=== PATIENT | male | born 1955 | race Caucasian/White ===

== ENCOUNTER 2018-11-02 09:58 | Emergency (ER) | payer BC ==
--- NOTE | 2018-11-02 12:20 | UC ---
Ear Complaint HPI - HPI Summary HPI Summary: Patient has had sensation of right ear congestion for the last several weeks. It feels plugged and has some occasional discomfort. Has been taking antihistamines and using Debrox without much relief in symptoms. Has some slight clear nasal drainage which he attributes to allergies but no cough or other URI symptoms. No fever/nausea/vomiting. Is also complaining of some discomfort in the right side of his neck. No sore throat or respiratory involvement. Has done a lot of air travel over the past couple of months both domestically and overseas which he thinks has exacerbated his sx. - History of Current Complaint Chief Complaint: UCEar Stated Complaint: EAR PAIN PAIN IN THROAT Time Seen by Provider: 11/02/18 11:34 Hx Obtained From: Patient Onset/Duration: Sudden Onset, Lasting Weeks, Still Present Severity Initially: Mild Severity Currently: Mild Pain Intensity: 2 Pain Scale Used: 0-10 Numeric Aggravating Factors: Nothing Alleviating Factors: Nothing Associated Signs/Symptoms: Negative: Discharge, Hearing Loss, URI Symptoms - Allergies/Home Medications Allergies/Adverse Reactions: Allergies Allergy/AdvReac Type Severity Reaction Status Date / Time ENVIRONMENTAL/POLLENS Allergy Unknown Uncoded 11/02/18 10:14 Reaction Details PMH/Surg Hx/FS Hx/Imm Hx Cardiovascular History: Hypertension - NO MEDS Other Neurological History: MS - Surgical History Surgical History: Yes Surgery Procedure, Year, and Place: TISSUE REMOVAL LEFT HAND X5 MOST RECENT 2012, LEFT KNEE 14 YEARS AGO - Family History Known Family History: Positive: Cardiac Disease, Hypertension, Other - HLD - Social History Alcohol Use: Daily Alcohol Amount: 2 beers Substance Use Type: None Smoking Status (MU): Never Smoked Tobacco Type: Cigarettes Have You Smoked in the Last Year: No When Did the Patient Quit Smoking/Using Tobacco: quit 25 years ago Review of Systems All Other Systems Reviewed And Are Negative: Yes Constitutional: Positive: Negative Skin: Positive: Negative ENT: Positive: Ear Ache, Nasal Discharge Respiratory: Positive: Negative Cardiovascular: Positive: Negative Gastrointestinal: Positive: Negative Musculoskeletal: Positive: Myalgia - RIGHT SCM Physical Exam Triage Information Reviewed: Yes Appearance: Well-Appearing, No Pain Distress, Well-Nourished Vital Signs: Initial Vital Signs Temp 97.9 F 11/02/18 10:09 Pulse 80 11/02/18 10:09 Resp 18 11/02/18 10:09 BP 142/90 11/02/18 10:09 Pulse Ox 100 11/02/18 10:09 Vital Signs Reviewed: Yes Eyes: Positive: Conjunctiva Clear ENT: Positive: Hearing grossly normal, Pharynx normal, Other - BILATERAL TM RETRACTED Neck: Positive: Supple, No Lymphadenopathy, Other: - POINT TENDER OVER RIGHT SCM. NO MASSES Respiratory Exam: Normal Cardiovascular Exam: Normal Abdomen Description: Positive: Soft Musculoskeletal: Positive: No Edema Neurological: Positive: Alert Psychological: Positive: Age Appropriate Behavior Skin: Negative: Rashes Ear Complaint Course/Dx - Course Course Of Treatment: EXAM TODAY SHOWED RETRACTED EARDRUMS BUT NO ACUTE INFECTION. PATIENT HAS BEEN TRAVELING BY PLANE A LOT OVER THE PAST COUPLE OF MONTHS. LIKELY EUSTACHIAN TUBE DYSFUNCTION. RECOMMEND ENT EVALUATION IF SYMPTOMS DO NOT IMPROVE OVER THE NEXT FEW WEEKS. PATIENT HAS POINT TENDERNESS OVER THE RIGHT SCM MUSCLE BELLY. NO PALPABLE LYMPH NODES OR MASSES. PATIENT OFFERED SOFT TISSUE X-RAY TO FURTHER EVALUATE PAIN IN THE SOFT TISSUES OF THE RIGHT SIDE OF THE NECK BUT DECLINES. HAS FOLLOW-UP WITH HIS PCP IN 2 DAYS AND WILL READDRESS AT THAT TIME. - Differential Dx/Diagnosis Provider Diagnosis: Eustachian tube dysfunction Discharge - Sign-Out/Discharge Documenting (check all that apply): Patient Departure All imaging exams completed and their final reports reviewed: No Studies - Discharge Plan Condition: Stable Disposition: HOME Patient Education Materials: Earache (ED) Referrals: Milla Clarek MD [Primary Care Provider] - (KEEP YOUR APPT IN 2 DAYS) Additional Instructions: YOUR EARDRUMS ARE SLIGHTLY RETRACTED ON EXAM WHICH MAY BE DUE TO FLUID BEHIND THE DRUMS AND/OR PRESSURE DIFFERENTIAL. NO ACUTE INTERVENTION INDICATED AT THIS POINT. NO CLEAR INFECTIOUS PROCESS ON EXAM TODAY. CONSIDER ENT EVAL IF YOUR SYMPTOMS ARE NOT IMPROVING OVER THE NEXT WEEK OR SO. UNCLEAR ETIOLOGY OF THE PAIN IN THE RIGHT SIDE OF YOUR NECK. FOLLOW-UP WITH YOUR PCP OR ENT. IF THIS DOES NOT RESOLVE YOU MAY BENEFIT FROM IMAGING. [facility] [place] [address] [facility] [phone] EUSTACHIAN TUBE DYSFUNCTION What is the eustachian tube? The eustachian tube is a tube that connects the middle ear (the part of the ear behind the eardrum) to the back of the nose and throat (figure 1). Normally, the eustachian tube helps keep the air pressure inside the middle ear the same as the air pressure outside the middle ear. If there is a problem with the eustachian tube, the air pressure inside the middle ear won't be the same as the air pressure outside of it. This can damage the middle ear and cause ear pain, hearing loss, and other symptoms. "Ear barotrauma" is the medical term for when people have symptoms or damage in the middle ear because of air pressure differences. Most eustachian tube problems are not serious. They usually last only a short time and get better on their own. But eustachian tube problems sometimes lead to serious problems, such as: - A middle ear infection - A torn eardrum - Hearing loss Long-term hearing loss from eustachian tube problems can also lead to language or speech problems in children. What causes eustachian tube problems? Common causes of eustachian tube problems are: - Illnesses or conditions that make the eustachian tubes swollen or inflamed These include colds, allergies, ear infections, or sinus infections. The sinuses are hollow areas in the bones of the face. - Sudden air pressure changes Sudden air pressure changes can happen when people fly in an airplane, scuba dive, or drive in the mountains. - Growths that block the eustachian tube - Being born with an abnormal eustachian tube What are the symptoms of a eustachian tube problem? Common symptoms of a eustachian tube problem include: - Ear pain - Feeling pressure or fullness in the ear - Trouble hearing - Ringing in the ear - Feeling dizzy Should I see a doctor or nurse? See your doctor or nurse if your symptoms are severe, get worse, or if they don't go away after a few days. Will I need tests? Probably not. Your doctor or nurse should be able to tell if you have a eustachian tube problem by learning about your symptoms and doing an exam. If your symptoms are severe or last for a long time, your doctor or nurse might: - Have you see a special kind of doctor called an ear, nose, and throat doctor - Do tests to check your hearing - Do an imaging test Imaging tests can create pictures of the inside of the body. How are eustachian tube problems treated? Treatment depends on what's causing the eustachian tube problem. Depending on your individual situation, your doctor might treat you with one or more of the following: - Nose sprays - Antihistamines These medicines are usually used to treat allergies. They help stop itching, sneezing, and runny nose symptoms. - Decongestants These medicines can help with stuffy nose symptoms. - Surgery Most people do not need surgery for eustachian tube problems. But people might need surgery if their symptoms don't get better with medicines or they have severe or long-term symptoms. Antibiotics are not needed to treat eustachian tube problems. EAR PAIN, NON-SPECIFIC There are many causes of ear pain in adults. Pain that's felt in the ear can actually be coming from somewhere nearby. This is called "referred pain." Problems in the teeth, throat, or jaw joint (TMJ) often cause ear pain. Sometimes the physical exam or medical history suggests a treatable cause. If not, we may wait for the pain to go away. New symptoms may offer a clue to the cause of the pain. Report any changes to your care provider. These are some conditions that can cause ear pain, but may not be obvious from physical examination: Eardrum injury Pressure changes (barotrauma) due to swimming or shock waves Mild trauma such as Q-tip injury or finger-picking the outer ear Mild outer ear infection (swimmer's ear) Low-grade or chronic middle ear infection Mastoiditis (infection in the bone behind the ear) TMJ syndrome or arthritis of the jaw Pressure from hard earwax Tooth infection Infected tonsil Sinus infection Nerve disease such as Patrick's Palsy Follow your care provider's treatment recommendations. Let the ear rest. Don't insert cotton swabs, dig at the ear with your finger, or force your ears to "pop." If you're not improving after a few days, or if new symptoms arise, see the doctor. Watch for: Decreased hearing Spreading pain or headache Drainage or bleeding from the ear Fever Weakness of the face muscles Other new symptoms YOUR BLOOD PRESSURE WAS ELEVATED TODAY. THIS MAY BE DUE TO YOUR ACUTE CONDITION. MONITOR AND FOLLOW-UP WITH YOUR PCP WITHIN 4 WEEKS IF IT HAS NOT RETURNED TO NORMAL. - Billing Disposition and Condition Condition: STABLE Disposition: Home
[2018-11-02 12:21] VITALS: BP 158/90
== END 2018-11-02 12:21 | disposition home or self-care (01) ==
LOC: UCEAST 09:58
DX: H66.91 Otitis media, unspecified, right ear (principal); I10 Essential (primary) hypertension; Z91.09 Other allergy status, other than to drugs and biological substances
CPT/HCPCS: 99211; G0463